=== PATIENT | female | born 1970 | race Caucasian/White ===

== ENCOUNTER 2023-09-11 01:37 | Emergency (ER) | payer SELFPAY ==
[2023-09-11 01:49] VITALS: BMI 29.8
[2023-09-11] MEDS ORDERED: DEXAMETHASONE 4 MG TABLET (FP) PO ONE (03:16)
[2023-09-11] MEDS ORDERED: CLINDAMYCIN HCL 300 MG CAPSULE PO ONE (03:17)
[2023-09-11] MEDS ORDERED: AMOX TR/POT CLAV 875MG/125MG TABLETS (FP) PO ONE (03:17)
[2023-09-11] MEDS ORDERED: CLINDAMYCIN 600MG PREMIX IVPB 600 MG/50 ML BAG IVPB ONE ×2 (03:49→04:09)
[2023-09-11] MEDS ORDERED: DEXAMETHASONE 4 MG TABLET (FP) ONE (04:09)
[2023-09-11] MEDS ORDERED: DEXAMETHASONE SOD PHOSPHATE 10 MG/1 ML VIAL IVPUSH ONE (04:13)
[2023-09-11] MEDS ORDERED: DEXAMETHASONE SOD PHOSPHATE 10 MG/1 ML VIAL ONE (04:30)
[2023-09-11 04:37] LABS: BASO % 0.9 % (0-2.0); EOS % 0.4 % (0-4.5); HEMATOCRIT 39.9 % (32.4-45.2); MCH 30.2 pg (25.7-33.7); MEAN CELL VOLUME 86.4 fl (80-96); MEAN PLT VOLUME 7.4 fl (7.5-11.1); MONO % 11.4 % (3.8-10.2); NEUT % 50.3 % (42.8-82.8); PLATELET COUNT 216 10^3/uL (134-434); RBC 4.62 M/mm3 (3.60-5.2); RDW 13.5 % (11.6-15.6); WHITE BLOOD COUNT 3.6 K/mm3 (4.0-10.0)
[2023-09-11 04:51] LABS: POTASSIUM 3.6 mmol/L (3.5-5.1)
[2023-09-11 04:54] LABS: ALBUMIN 3.4 g/dl (3.4-5.0); BLOOD UREA NITROGEN 9.8 mg/dL (7-18); CALCIUM 8.6 mg/dL (8.5-10.1)
[2023-09-11 04:57] LABS: CREATININE 0.8 mg/dL (0.55-1.3)
[2023-09-11 04:59] LABS: BILIRUBIN,TOTAL 0.5 mg/dL (0.2-1)
[2023-09-11 16:08] VITALS: BP 112/75; PULSE 98; RESP 18; TEMP 97.8
== END 2023-09-11 12:56 | disposition short-term general hospital (02) ==
LOC: JER 01:37
PROC: 3E03329 Introduction of Other Anti-infective into Peripheral Vein, Percutaneous Approach (ICD-10-PCS; principal; 2023-09-11)
PROC: 3E033GC Introduction of Other Therapeutic Substance into Peripheral Vein, Percutaneous Approach (ICD-10-PCS; 2023-09-11)
DX: L03.213 Periorbital cellulitis (principal); H05.223 Edema of bilateral orbit; R05.9 Cough, unspecified; R09.81 Nasal congestion; R11.10 Vomiting, unspecified; M79.10 Myalgia, unspecified site; Z20.822 Contact with and (suspected) exposure to COVID-19
CPT/HCPCS: 0241U-QW; 36415; 70450-TC; 70480-TC; 80053; 85025; 99285-25; J1100